=== PATIENT | male | born 1995 | race African-American/Black ===

== ENCOUNTER 2018-03-07 23:24 | Emergency (ER) | payer MEDICAID, SELFPAY ==
[2018-03-07 23:25] VITALS: BP 150/103; PULSE 115; RESP 16; TEMP 36.7; BMI 22.6
--- NOTE | 2018-03-07 23:40 | RAD_ITS ---
STUDY: X-RAY - LEFT ANKLE REASON FOR EXAM: Male, 22 years old. Injury and pain TECHNIQUE: Three view(s) of the ankle were obtained. COMPARISON: None. FINDINGS: Bones: There are no acute osseous abnormalities. Joints: The visualized joints are unremarkable. Soft tissues: There is moderate soft tissue swelling laterally. RAD/Ankle min 3 Views IMPRESSION: There is lateral soft tissue swelling without evidence of an acute fracture. Electronically Signed: Sammie Mcpherson MD at 0:42 EDT Tel Direct: [phone], Service support ,
--- NOTE | 2018-03-07 23:46 | ED.DCSUM_ITS ---
- ER Visit Summary Date of Service: 03/07/18 Chief Complaint: [Injury to left ankle] History of Present Illness: The patient is a 22 M [presents the emergency department with complaint of injury to the left ankle that occurred about an hour ago. Patient states that he was playing basketball when he came down awkwardly on his ankle and rolled it. Patient unable to bear weight.] Physical Examination: [Right ankle-patient has diffuse soft tissue swelling over the medial and lateral malleolus with tenderness to palpation. He has no pain at the proximal fibular head. There is no pain at the base of the fifth metatarsal. He is neurovascularly intact with normal station normal cap refill. Achilles tendon is intact and nontender.] Test Results: [X-rays of the left ankle obtained showed no fractures as interpreted by myself] Emergency Department Course and Treatment: [Patient will be given air splint and crutches] Treatment Plan: [Patient to ice and elevate extremity and use ibuprofen as needed for discomfort. Patient to follow-up with his primary care physician in 5-7 days.] Disposition: [Discharged home in stable condition] Impression: [Left ankle sprain] This note was generated with [employer] dictation software. It may contain incorrect words, spelling, and punctuation that were not noted in review of the chart prior to signing ED Disposition - Plan for ED Patient: Chief Complaint: Lower Extremity Injury Referrals: Edison Agee DO [Primary Care Provider] -
--- NOTE | 2018-03-07 23:46 | ED.DEP ---
ED Disposition - Plan for ED Patient: Chief Complaint: Lower Extremity Injury Instructions: ED Sprain Ankle W X Ray Referrals: Edison Agee DO [Primary Care Provider] - 5-7 Days
[2018-03-08 00:08] VITALS: RESP 18
== END 2018-03-08 00:10 | disposition home or self-care (01) ==
LOC: ED 23:49
PROVIDERS: Emergency Provider Emergency Medicine; Family Provider Pediatrics; PCP Pediatrics
DX: S93.402A Sprain of unspecified ligament of left ankle, initial encounter (principal); X50.1XXA Overexertion from prolonged static or awkward postures, initial encounter; Y93.67 Activity, basketball; Y92.89 Other specified places as the place of occurrence of the external cause; Y99.9 Unspecified external cause status
CPT/HCPCS: 73610; 99284

== ENCOUNTER 2020-07-09 22:29 | Emergency (ER) | payer OTHER, MEDICAID, SELFPAY ==
[2020-07-09 22:30] VITALS: BP 144/96; PULSE 108; RESP 99; TEMP 36.6; O2SAT 97; BMI 21.8
--- NOTE | 2020-07-09 22:40 | ED.RN ---
[facility] called. [phone] powell rn
--- NOTE | 2020-07-09 22:41 | RAD_ITS ---
STUDY: X-RAY - LEFT FOOT CLINICAL: Male, 25 years old. pt caught his foot between a tow-motor and a safty bar. pain in left foot. TECHNIQUE: 3 view(s) of the foot. COMPARISON: None. FINDINGS: Normal talus, calcaneus, and tarsal bones. Normal visualized subtalar, talonavicular, calcaneocuboid, tarsal and tarsometatarsal articulations. Normal metatarsi. Normal metatarsophalangeal joint of the great toe. Normal tibial and fibular sesamoid bones. Normal interphalangeal joint of the great toe. Normal phalanges of the great toe. Normal second through fifth metatarsophalangeal joints. Normal interphalangeal joints and phalanges of the lesser toes. Mild soft tissue swelling of the forefoot. RAD/Foot min 3 Views IMPRESSION: Mild soft tissue swelling of the forefoot. Electronically Signed: Isaiah Dodson DO at 23:10 EST Tel [phone], Service support ,
--- NOTE | 2020-07-09 22:41 | ED.VIS.GEN ---
History of Present Illness Chief Complaint: Lower Extremity Injury Informant: Patient Narrative: Patient stated he was at work and was on a tow motor and accidentally got caught between the toe motor and the safety bar. He is having pain in the distal portions of the left foot mainly on the outside where his little toe is located. He is unable to walk on it secondary to pain. No home treatment. Happened prior to arrival. Current severity is moderate. No previous injury to this area. Denies any ankle or other injuries Past Medical History - Allergies and Home Meds Allergies/Adverse Reactions: Allergies amoxicillin trihydrate [From Augmentin] Allergy (Verified 07/09/20 22:29) Rash potassium clavulanate [From Augmentin] Allergy (Verified 07/09/20 22:29) Rash Primary Care Physician: Edison Agee DO [Primary Care Provider] - Prior records reviewed: Yes Past Medical History: None Surgical History: noncontributory Lives: With Family Smoking Status: Never smoker Alcohol: None Drugs: None Review of Systems General: Denies: Chills, Fever, Sweats Eyes: Denies: Visual changes - bilaterally, Diplopia ENT: Denies: Rhinorrhea, Sore throat Cardiovascular: Denies: Chest pain, Palpitations Respiratory: Denies: Dyspnea, Cough, Dyspnea on exertion Gastrointestinal: Denies: Abdominal pain, Nausea, Vomiting, Diarrhea, Melena, Hematochezia Genitourinary: Denies: Dysuria, Hematuria, Frequency Musculoskeletal: Reports: Extremity Pain. Denies: Back pain Skin: Denies: Rash, Wounds Neurological: Denies: Headache, Weakness, Numbness Physical Exam Vital Signs/Narrative: Vital Signs Temp Pulse Resp BP Pulse Ox 07/09/20 22:30 97.9 F 108 H 99 H 144/96 H 97 General: Well nourished, Well developed, No Acute Distress Head: Normocephalic, Atraumatic Eyes: Perrl, EOMI ENT: Moist mucous membranes, No rhinorrhea Neck: Supple, Nontender Cardiovascular: Regular rate, Regular rhythm, No murmurs Respiratory: No distress, CTA bilaterally, Chest nontender Abdomen: Soft, Nontender, Nondistended, Normal bowel sounds Back: Nontender, Normal Inspection Extremities: Tenderness - Numbness over the distal foot diffusely mainly on the lateral distal metatarsals and left fifth toe. Decreased range of motion secondary to pain. Small contusion located under the head of the first metatarsal as well on the bottom of the foot. Skin: No rash, - - See above Neurological: Alert, Oriented x3, Cranial nerves II-XII grossly intact, Normal Strength, Normal Sensation Psychological: Normal affect, Normal Mood Diagnostic/Tx/Re-eval - Medical Decision Making Given ibuprofen ice pack and x-ray of the left foot obtained. X-ray shows a fracture to the proximal phalanx of the fifth toe on the distal portion. It is diagonal. Initially missed by radiology and will be an addendum. Patient placed in a postop shoe. Given crutches. I did will not amada tape this as this will stress the fracture line. We will do ibuprofen and follow-up as an outpatient ED Disposition - Plan for ED Patient: Disposition: Home or Assisted Living Diagnosis: Toe fracture, Foot contusion Instructions: ED Fx Toe Closed Referrals: [facility] [GROUP OF PHYSICIANS] - Boy Chapman DPM [STAFF PHYSICIAN] -
[2020-07-09] MEDS: Ibuprofen 600 MG Tablet PO (22:44)
[2020-07-09 23:40] VITALS: BP 138/60; PULSE 86; RESP 16; O2SAT 98
== END 2020-07-09 23:43 | disposition home or self-care (01) ==
PROVIDERS: Emergency Provider Emergency Medicine; PCP Pediatrics
DX: S92.912A Unspecified fracture of left toe(s), initial encounter for closed fracture (principal); S90.32XA Contusion of left foot, initial encounter; W31.89XA Contact with other specified machinery, initial encounter; Y93.89 Activity, other specified; Y92.89 Other specified places as the place of occurrence of the external cause; Y99.0 Civilian activity done for income or pay; Z88.0 Allergy status to penicillin; Z88.1 Allergy status to other antibiotic agents
CPT/HCPCS: 73630; 99284